=== PATIENT | female | born 1945 | race Caucasian/White ===

== ENCOUNTER → 2018-09-26 15:10 | Outpatient (CLI) | payer MEDICARE, OTHER, SELFPAY ==
--- NOTE | 2018-09-26 | DI.MG.S_ITS ---
BILATERAL DIGITAL SCREENING MAMMOGRAM 3D/2D WITH CAD: 09/26/2018 CLINICAL: Routine screening. Family history of breast cancer. Comparison is made to exams dated: 03/02/2017 mammogram, 02/22/2016 mammogram, and 01/30/2014 mammogram - [facility]. There are scattered fibroglandular elements in both breasts. Current study was also evaluated with a Computer Aided Detection (CAD) system. No significant masses, calcifications, or other findings are seen in either breast. There has been no significant interval change. IMPRESSION: NEGATIVE There is no mammographic evidence of malignancy. A 1 year screening mammogram is recommended. This exam was interpreted at Station ID: [id number]. NOTE: For mammograms, a report in lay terms will be sent to the patient. Approximately 15% of breast malignancies will not be visualized mammographically. In the management of a palpable breast mass, a negative mammogram must not discourage biopsy of a clinically suspicious lesion. Electronically Signed By: Travis guevara/lanny:09/26/2018 16:27:37 letter sent: Normal Exam ACR BI-RADS Category 1: Negative [id number]
== END ==
PROVIDERS: PCP Family Medicine; Visit Provider Family Medicine
DX: Z12.31 Encounter for screening mammogram for malignant neoplasm of breast (principal); Z80.3 Family history of malignant neoplasm of breast
CPT/HCPCS: 77063; 77067

== ENCOUNTER → 2019-09-17 08:56 | Outpatient (CLI) | payer MEDICARE, OTHER, SELFPAY | PROVIDERS: PCP Family Medicine; Visit Provider Family Medicine | DX: M85.852 Other specified disorders of bone density and structure, left thigh (principal); Z78.0 Asymptomatic menopausal state; Z82.62 Family history of osteoporosis; Z87.891 Personal history of nicotine dependence | CPT/HCPCS: 77080 ==

== ENCOUNTER → 2020-03-26 11:50 | Outpatient (CLI) | payer MEDICARE, OTHER, SELFPAY ==
[2020-03-26 12:23] LABS: BUN Creatinine Ratio 20.8 (6-22); Blood Urea Nitrogen 21 mg/dL (7-17); Calcium 9.5 mg/dL (8.4-10.2); Carbon Dioxide 26 mmol/L (22-32); Chloride 103 mmol/L (98-107); Estimated Glomerular Filt Rate 53.4 mL/min (>60); Glucose 135 mg/dL (80-110); HEMOLYSIS < 15 (0-50); Potassium 4.3 mmol/L (3.4-5.1); Sodium 137 mmol/L (137-145)
--- NOTE | 2020-03-26 13:10 | DI.CT.S_ITS ---
PROCEDURE: CT ABDOMEN WO/W CON INDICATIONS: HYPERTENSION TECHNIQUE: Noncontrast 3 mm thick sections acquired from the diaphragms to the iliac crests. After the administration of intravenous contrast, 3 mm thick venous-phase and 15-minute delayed images acquired from the diaphragms to the iliac crests. For radiation dose reduction, the following was used: automated exposure control, adjustment of mA and/or kV according to patient size. COMPARISON: None. FINDINGS: Image quality: Excellent. Lung bases: Lung bases are clear except for mild linear scarring left lung base. Heart size is normal. Adrenal glands: Normal in size bilaterally, but there is a hyperenhancing nodule at the right adrenal gland, medial limb, measuring 5 x 6 mm in diameter. This is seen on series 3 image 29. No other adrenal nodule is found. Absolute and relative washout analysis was performed targeted to this nodule. Radiodensity before contrast was 27 Hounsfield units, during arterial phase of contrast was 201 Hounsfield units and on washout was 80 Hounsfield units. This results in a calculated absolute washout of 70% and a relative washout of 60%. The relatively prominent degree of focal enhancement on arterial phase imaging for a nodule of this small size does raise possibility of a vasoactive tumor such as an early pheochromocytoma as the underlying cause. Solid organs: Liver is normal in size and enhancement. Gallbladder appears normal, partially contracted. Biliary system is non dilated. Pancreas enhances normally. Spleen is normal in size and enhancement. Kidneys are normal in size and enhancement. No hydronephrosis or nephrolithiasis. Peritoneum and bowel: Unenhanced bowel loops are normal in caliber and wall thickness. No free fluid or air. Nodes and vessels: No retroperitoneal or mesenteric adenopathy by size criteria. Aorta and inferior vena cava are normal in size. Miscellaneous: No ventral hernias. Bones: No suspicious bony lesions. No vertebral body compression fractures. IMPRESSION: There is a small (5 x 6 mm) but densely enhancing nodule within the medial limb of the right adrenal gland which shows contrast enhancement and washout characteristics consistent with an adrenal adenoma. This also could potentially represent a small pheochromocytoma given the intensity of contrast enhancement. Urology consultation is recommended. Dictated by: Liam Olivo M.D. on 03/26/2020 at 15:30 Approved by: Liam Olivo M.D. on 03/26/2020 at 15:47
== END ==
PROVIDERS: PCP Family Medicine; Referring Provider Internal Medicine Cardiovascular Disease; Visit Provider Internal Medicine Cardiovascular Disease
DX: E27.9 Disorder of adrenal gland, unspecified (principal); I10 Essential (primary) hypertension
CPT/HCPCS: 36415; 74170; 80048; Q9967

== ENCOUNTER → 2020-04-13 09:28 | Outpatient (CLI) | payer MEDICARE, OTHER, SELFPAY ==
[2020-04-13 11:44] LABS: BUN Creatinine Ratio 22.8 (6-22); Blood Urea Nitrogen 21 mg/dL (7-17); Calcium 10.4 mg/dL (8.4-10.2); Carbon Dioxide 29 mmol/L (22-32); Chloride 99 mmol/L (98-107); Estimated Glomerular Filt Rate 59.5 mL/min (>60); Glucose 92 mg/dL (80-110); HEMOLYSIS < 15 (0-50); Potassium 4.9 mmol/L (3.4-5.1); Sodium 134 mmol/L (137-145)
== END ==
PROVIDERS: PCP Family Medicine; Referring Provider Internal Medicine Cardiovascular Disease; Visit Provider Internal Medicine Cardiovascular Disease
DX: I10 Essential (primary) hypertension (principal)
CPT/HCPCS: 36415; 80048; 82384

== ENCOUNTER → 2020-04-15 10:38 | Outpatient (CLI) | payer MEDICARE, OTHER, SELFPAY ==
[2020-04-15 15:56] LABS: Collection Time Urine 24 Hours; Creatinine 24 Hour Urine 729 mg/day (800-1800); Creatinine Urine Random 24.3 mg/dL; Total Volume Urine 3000 mL
[2020-04-19 10:36] LABS: Creatinine, 24 Urine 681 mg/24 hr (800-1800); Creatinine,Urine 22.7 mg/dL (Not Estab.); Dopamine, Ur 24hr 147 ug/24 hr (0-510); Epinephrine, U 24hr 6 ug/24 hr (0-20); Norepinephrine Ur 24hr 48 ug/24 hr (0-135)
== END ==
PROVIDERS: PCP Family Medicine; Referring Provider Internal Medicine Cardiovascular Disease; Visit Provider Internal Medicine Cardiovascular Disease
DX: I10 Essential (primary) hypertension (principal)
CPT/HCPCS: 82384; 82570

== ENCOUNTER → 2020-05-02 13:21 | Outpatient (CLI) | payer MEDICARE, OTHER, SELFPAY ==
[2020-05-03 23:38] LABS: COVID19 Sendout Not Detected (Not Detect)
== END ==
PROVIDERS: PCP Family Medicine; Visit Provider Physician Assistant
DX: Z01.812 Encounter for preprocedural laboratory examination (principal)
CPT/HCPCS: 87635

== ENCOUNTER 2020-05-05 09:09 | Day surgery (SDC) | payer MEDICARE, OTHER, SELFPAY ==
[2020-05-05] MEDS: PROPARACAINE 0.5% OPHTH SOL 2 DROPS EYE-OP (10:15)
[2020-05-05] MEDS: CATARACT EYE COMPOUND (10 DROPS/SYRINGE) 3 DROPS EYE-OP (10:16)
[2020-05-05 10:25] VITALS: BP 145/66; PULSE 54; RESP 16; TEMP 36.1; BMI 22.4
--- NOTE | 2020-05-05 10:41 | P.OP_ITS ---
Operative Date/Time/Diagnoses Pre-op diagnosis: Nuclear Cataract Left eye Post-op diagnosis: same Procedure & Clinicians Same procedure as scheduled: Yes Surgeon: David Peralta Anesthesia Type: MAC +/- and Sedation Operative Notes Procedure in detail: Patient brought to the operating suite. Tetracaine drops placed in the left eye. Marking instrument was used to jadiel the vertical and horizontal meridians. Patient was prepped and draped in sterile manner. Wire lid speculum was placed in the eye. Marking instrument was used to jadiel the 5 degree meridian. Betadine drops were placed on the eye. This was irrigated. Lidocaine jelly was placed on the eye. A paracentesis port was created with a side-port blade. 0.1 mL 1% preservative free lidocaine was injected into the anterior chamber. The anterior chamber was deepened with viscoelastic. 2.6 mm keratome was used to create a temporal clear corneal incision. Cystotome and Utrata forceps were used to create continuous tear capsulorrhexis. Balanced salt solution was used to hydro dissect the nucleus. The phacoemulsification handpiece was inserted and the nucleus was removed using the stop and chop t echnique. The irrigation aspiration handpiece was inserted and the remaining cortex was removed. Anterior chamber was deepened with viscoelastic. An Spence [id number] intraocular lens with a power of 16.0 was injected into the capsular bag. Irrigation aspiration handpiece was inserted and the remaining viscoelastic was removed. The lens was rotated to the 5 degree meridian. Incision was hydrated with balanced salt solution and found to be leak free with pressure with Weck- Monika sponges. 0.1 mL Vigamox injected anterior chamber. 0.3 mL Kenalog 10 mg was injected subconjunctivally. Lid speculum was removed. The patient left the operating room in excellent condition. Complications: none Post-operative Condition: stable Disposition: same day surgery
--- NOTE | 2020-05-05 10:41 | PM.PREOP ---
Pre-operative Note Interval Note History & Physical reviewed/Exam performed by Physician: Yes Changes to H&P: No
[2020-05-05] MEDS: LIDOCAINE JELLY 2% 5 ML 1 APPLIC TOP (11:02)
[2020-05-05] MEDS: TRIAMCINOLONE 50 MG/5 ML VIAL INJ (11:02)
[2020-05-05] MEDS: CHONDROIDTIN/SOD HYALURONATE 1.05 ML SYRINGE INTRAOCULA (11:02)
[2020-05-05] MEDS: PHENYLEPHRINE/LIDOCAINE VIAL (OR) 0.2 ML EYE-OP (11:03)
[2020-05-05] MEDS: BALANCED SALT IRRIG SOLN NO.2 500 ML, EPINEPHrine 1 MG IRR (11:03)
[2020-05-05] MEDS: TETRACAINE 0.5% OPHTH DROPS 4 ML 2 DROPS EYE-OP (11:03)
[2020-05-05] MEDS: MOXIFLOXACIN INJ 5 MG/ML VIAL EYE-OP (11:03)
[2020-05-05 11:11] VITALS: BP 112/66; PULSE 57; RESP 16; TEMP 36.2; O2SAT 100
== END 2020-05-05 11:40 | disposition home or self-care (01) ==
PROVIDERS: PCP Family Medicine; Referring Provider Ophthalmology; Visit Provider Ophthalmology
PROC: (CPT 66984; principal; 2020-05-05 10:45)
DX: H25.12 Age-related nuclear cataract, left eye (principal); I10 Essential (primary) hypertension
CPT/HCPCS: 66984; J0171; J2250; J3301; V2787

== ENCOUNTER → 2020-05-16 11:11 | Outpatient (CLI) | payer MEDICARE, OTHER, SELFPAY ==
[2020-05-18 21:01] LABS: COVID19 Sendout Not Detected (Not Detect)
== END ==
PROVIDERS: PCP Family Medicine; Visit Provider Physician Assistant
DX: Z11.59 Encounter for screening for other viral diseases (principal)
CPT/HCPCS: 87635

== ENCOUNTER 2020-05-19 07:21 | Day surgery (SDC) | payer MEDICARE, OTHER, SELFPAY ==
[2020-05-19] MEDS: PROPARACAINE 0.5% OPHTH SOL 2 DROPS EYE-OP (07:57)
[2020-05-19] MEDS: CATARACT EYE COMPOUND (10 DROPS/SYRINGE) 3 DROPS EYE-OP (07:57)
[2020-05-19 07:59] VITALS: BP 131/60; PULSE 55; RESP 16; TEMP 36.6; O2SAT 98; BMI 21.6
--- NOTE | 2020-05-19 09:09 | PM.PREOP ---
Pre-operative Note Interval Note History & Physical reviewed/Exam performed by Physician: Yes Changes to H&P: No
--- NOTE | 2020-05-19 09:09 | PM.OP.1 ---
Operative Date/Time/Diagnoses Pre-op diagnosis: Nuclear cataract right eye Procedure & Clinicians Procedure: Cataract Surgery Same procedure as scheduled: Yes Surgeon: David Peralta Anesthesia Type: MAC +/- and Sedation Operative Notes Procedure in detail: Patient brought to the operating suite. Tetracaine drops placed in the right eye. The marking instrument was used to jadiel the vertical and horizontal meridians. Patient was prepped and draped in sterile manner. Wire lid speculum was placed in the eye. The marking instrument was used to jadiel the 175 degree meridian. Betadine drops were placed on the eye. This was irrigated. Lidocaine jelly was placed on the eye. A paracentesis port was created with a side-port blade. 0.1 mL 1% preservative free lidocaine was injected into the anterior chamber. The anterior chamber was deepened with viscoelastic. 2.6 mm keratome was used to create a temporal clear corneal incision. Cystotome and Utrata forceps were used to create continuous tear capsulorrhexis. Balanced salt solution was used to hydro dissect the nucleus. The phacoemulsification handpiece was inserted and the nucleus was removed using the stop and chop technique. The irrigation aspiration handpiece was inserted and the remaining cortex was removed. Anterior chamber was deepened with viscoelastic. An Spence [id number] intraocular lens with a power of 15.5 was injected into the capsular bag. Irrigation aspiration handpiece was inserted and the remaining viscoelastic was removed. The lens was rotated to the 175 degree meridian. Incision was hydrated with balanced salt solution and found to be leak free with pressure with Weck-Monika sponges. 0.1 mL Vigamox injected anterior chamber. 0.3 mL Kenalog 10 mg was injected subconjunctivally. Lid speculum was removed. The patient left the operating room in excellent condition. Complications: none Post-operative Condition: stable Disposition: same day surgery
[2020-05-19] MEDS: LIDOCAINE JELLY 2% 5 ML 1 APPLIC TOP (09:33)
[2020-05-19] MEDS: TETRACAINE 0.5% OPHTH DROPS 4 ML 2 DROPS EYE-OP (09:33)
[2020-05-19] MEDS: CHONDROIDTIN/SOD HYALURONATE 1.05 ML SYRINGE INTRAOCULA (09:33)
[2020-05-19] MEDS: PHENYLEPHRINE/LIDOCAINE VIAL (OR) 0.2 ML EYE-OP (09:33)
[2020-05-19] MEDS: TRIAMCINOLONE 50 MG/5 ML VIAL INJ (09:34)
[2020-05-19] MEDS: MOXIFLOXACIN INJ 5 MG/ML VIAL EYE-OP (09:34)
[2020-05-19] MEDS: BALANCED SALT IRRIG SOLN NO.2 500 ML, EPINEPHrine 1 MG IRR (09:34)
[2020-05-19 09:43] VITALS: BP 108/55; PULSE 63; RESP 12; TEMP 36.1; O2SAT 97
[2020-05-19 09:56] VITALS: BP 117/80; PULSE 67; O2SAT 98
--- NOTE | 2020-05-19 12:29 | SUR.PHASEII ---
0943 Patient arrived to the out patient department drowsy. VS stable. Beverage provided. Call light within reach. Spouse present. 0956 VS stable, patient requested to discharge.
== END 2020-05-19 10:07 | disposition home or self-care (01) ==
PROVIDERS: PCP Family Medicine; Referring Provider Family Medicine; Visit Provider Ophthalmology
PROC: (CPT 66984; principal; 2020-05-19 09:15)
DX: H25.11 Age-related nuclear cataract, right eye (principal); I10 Essential (primary) hypertension
CPT/HCPCS: 66984; J0171; J2250; J3301; V2787